=== PATIENT | female | born 1965 | race Caucasian/White ===

== ENCOUNTER 2017-02-13 20:32 | Emergency (ER) | payer BC, OTHER ==
[~2017-02-13] VITALS: Ht 165.1 cm; Wt 75.0 kg
[~2017-02-13 20:32] MED LIST: ALPRAZOLAM0.5 MG PO; ANTIVERT25 MG PO; BUTRANS1 EAC1 TD; CEFTIN500 MG PO; CLARITIN10 M3 PO; CLARITIN10 MG PO; DILAUDID4 MG; DILAUDID4 MG PO; ESTRACE0.5 MG PO; ESTRACE42.5 GM VG; ESTRADIOL1 MG PO; EXALGO16 MG; EXALGO8 MG PO; FAMVIR500 MG PO; FIORICET,ESG1 TABLET PO; FLAX SEED; GABAPENTIN100 MG PO; GENTEAL GEL DRO15 ML OP; GEODON40 MG PO; IBUPROFEN800 MG PO; LIDODERM 5% P1 PATCH ID; LIDODERM 5% P1 PATCH PO; LOTEMAX 0.200 DROP/1 BOTH EYES; MAG-OXIDE400 MG PO; MAGOX 400400 MG PO; MAXALT10 MG PO; MECLIZINE HCL25 M3 PO; MIRALAX17 GM PO; NEURONTIN100 MG PO; PERCOCET 5/31 TABLET PO; PHENERGAN12.5 M1 PO; PREVACID30 MG PO; SENOKOT,SENN1 TABLET PO; SERTRALINE HCL100 MG PO; SKELAXIN800 MG PO; SYNTHROID112 MCG PO; SYNTHROID125 MCG PO; TOPAMAX100 MG PO; TYLENOL ARTHRI650 MG PO; VICODIN,LORT1 TABLET PO; VIGAMOX 0.60 DROP/3 BOTH EYES; VITAMIN D1000 INTUN PO; VITAMIN D3 5,01 EACH PO; VIVELLE DOT; VIVELLE-DOT0.1 MG TD; XANAX0.5 MG PO; ZOLOFT100 M1 PO; ZOLOFT100 MG PO
[2017-02-13] MEDS ORDERED: CEFTIN500 MG PO (22:18)
[2017-02-13] MEDS ORDERED: CLEOCIN300 MG PO (22:18)
[2017-02-13 22:31] VITALS: BP 144/87
== END 2017-02-13 22:33 | disposition home or self-care (01) ==
LOC: EME 20:32
PROC: 3E0234Z Introduction of Serum, Toxoid and Vaccine into Muscle, Percutaneous Approach (ICD-10-PCS; principal; 2017-02-13)
DX: S51.852A Open bite of left forearm, initial encounter (principal); W55.01XA Bitten by cat, initial encounter; S50.812A Abrasion of left forearm, initial encounter; W55.03XA Scratched by cat, initial encounter; Y99.2 Volunteer activity; Z23 Encounter for immunization; Z88.0 Allergy status to penicillin
CPT/HCPCS: 99281; 99284